=== PATIENT | male | born 1955 | race Caucasian/White ===

== ENCOUNTER 2017-03-19 14:56 | Emergency (ER) | payer SELFPAY ==
[~2017-03-19] VITALS: Ht 188 cm; Wt 99.8 kg
[2017-03-19 15:17] VITALS: BP 155/85
== END 2017-03-19 16:00 ==
LOC: ER 14:56
DX: Z02.89 Encounter for other administrative examinations (principal)

== ENCOUNTER 2021-03-23 06:53 | Emergency (ER) | payer OTHER ==
[~2021-03-23] VITALS: Ht 185.4 cm; Wt 90.7 kg
[2021-03-23 09:00] VITALS: BP 148/95
== END 2021-03-23 09:03 | disposition home or self-care (01) ==
LOC: ER 06:53
DX: S22.42XA Multiple fractures of ribs, left side, initial encounter for closed fracture (principal); F10.10 Alcohol abuse, uncomplicated; W10.0XXA Fall (on)(from) escalator, initial encounter; Y93.89 Activity, other specified; Y92.89 Other specified places as the place of occurrence of the external cause; Y99.8 Other external cause status; Y90.9 Presence of alcohol in blood, level not specified
CPT/HCPCS: 71250